=== PATIENT | male | born 1985 | race Caucasian/White ===

== ENCOUNTER 2020-07-29 11:10 | Emergency (ER) | payer OTHER, SELFPAY ==
--- NOTE | ~2020-07-29 | XR_ITS ---
EXAMINATION: XR tibia fibula RT 2V DATE: 07/29/2020 12:25 INDICATION: Right lower leg pain. Fall. TECHNIQUE: 2 views of right tibia and fibula on 4 radiographs were obtained. COMPARISON: None. FINDINGS: Bone alignment is normal. No fracture. Joint spaces are well maintained. IMPRESSION: 1. No fracture. Reviewed, dictated and finalized at location B. IMPRESSION: 1. No fracture.
--- NOTE | ~2020-07-29 | US_ITS ---
EXAMINATION: US venous doppler LE RT EXAM DATE: 07/29/2020 12:52 INDICATION: Right calf pain. TECHNIQUE: Multiple grayscale, color flow and Doppler images of the right lower extremity deep venous system were obtained and reviewed. There is no prior study for comparison. FINDINGS: The right common femoral, femoral and profunda veins demonstrate normal color flow, respira tory variation, augmentation and compressibility. Compressibility, color flow confirmed within the r ight popliteal, posterior tibial, peroneal, veins. There is right greater saphenous below knee superficial venous thrombophlebitis, reportedly at an are a of clinical concern. IMPRESSION: 1. Right greater saphenous superficial venous thrombophlebitis below the knee. 2. No right lower extremity deep venous thrombosis. Reviewed, dictated and finalized at location A.
[2020-07-29 11:52] VITALS: BP 136/98; PULSE 70; RESP 18; TEMP 36.6; O2SAT 100
--- NOTE | 2020-07-29 12:04 | ED.LOWEXIN ---
HPI - Extremity Injury (Lower) General Chief Complaint: Extremity Injury, Lower Stated Complaint: rt leg injury Time Seen by Provider: 07/29/20 11:56 Source: RN notes reviewed History of Present Illness HPI Narrative: Patient presents to emergency room from home for right calf pain. Patient states presently 2 weeks ago he fell off the ladder landing on his feet. States he scraped his right medial calf on the side a ladder when he fell but denies any open wounds. States he did not have any symptoms initially but approximately later began to develop pain over the right lateral calf. States since that time he had an area of firmness is been tender to palpation. States it does not hurt to move the ankle or the knee and denies any pain with activation of the calf denies any fevers or chills chest pain shortness of breath or any other symptoms Related Data Allergies Allergy/AdvReac Type Severity Reaction Status Date / Time Sulfa (Sulfonamide Allergy Mild Rash Verified 01/23/18 02:52 Antibiotics) Review of Systems Review of Systems: Narrative: Gen.: Denies fevers or chills Respiratory: Denies shortness of breath or cough CV: Denies chest pain or palpitations Musculoskeletal: See HPI Neuro: Denies numbness, tingling, weakness or focal weakness Skin: Denies rash Except as documented, all other systems reviewed and negative PMFSH Past Medical History Medical History (Updated 07/29/20 @ 14:11 by Alexsander Velázquez DO) Patient denies significant medical history Social History Social History (Updated 07/29/20 @ 12:05 by Alexsander Velázquez DO) Smoking status: Current every day smoker Gender identity (if verbalized by the patient): Male Exam Narrative: Exam Narrative: APPEARANCE: No acute distress, nontoxic, resting in bed Eyes: EOMI HEENT: Normocephalic, atraumatic, RESPIRATORY: No respiratory distress MUSCULOSKELETAl: Tender palpation over the right medial calf with area of firmness and erythema no fluctuance no open wounds no drainage, no tenderness of the remainder of the calf, no tenderness of the knee or ankle full range of motion of both without pain, dorsalis pedis pulse 2+, neurovascular intact NEURO: Awake and alert. Following commands, speech normal, no focal deficits SKIN:: Warm, dry. Normal Color no rash or lesions Course Course Emergency Course: Discussed Dr. Motwani presentation work-up. At this time recommends patient start on ibuprofen with discharge and follow-up as an outpatient Discussed with patient results of workup and diagnosis. Discussed need for follow-up with primary care, proper use of medication, and reasons to return to the emergency department. Patient understands and agrees to current treatment plan Vital Signs Vital signs: Vital Signs Temperature 98 F 07/29/20 11:52 Pulse Rate 70 07/29/20 11:52 Respiratory Rate 18 07/29/20 11:52 Blood Pressure 136/98 H 07/29/20 11:52 Pulse Oximetry 100 07/29/20 11:52 Temperature 98 F 07/29/20 11:52 Pulse Rate 70 07/29/20 11:52 Respiratory Rate 18 07/29/20 11:52 Blood Pressure 136/98 H 07/29/20 11:52 Pulse Oximetry 100 07/29/20 11:52 MDM - Extremity Injury (Lower) Lab Data Result diagrams: 07/29/20 12:10 07/29/20 12:10 Labs: Lab Results 07/29/20 07/29/20 07/29/20 Range/Units 12:10 12:10 12:10 WBC 7.7 (4.5-10.0) K/mm3 RBC 4.88 (4.6-6.20) M/mm3 Hgb 15.2 (14.0-18.0) g/dL Hct 43.5 (42.0-52.0) % MCV 89.1 (80-100) fl MCH 31.1 (26-34) pg MCHC 34.9 (32-36) g/dl RDW 12.0 (11.5-14.5) % Plt Count 257 (150-375) k/mm3 MPV 10.2 (7.4-10.4) fl Immature Gran % (Auto) 0.3 (0-0.5) % Neut % (Auto) 57.8 (45.5-73.1) % Lymph % (Auto) 27.2 (18.3-44.2) % Harding % (Auto) 11.0 H (2.6-8.5) % Eos % (Auto) 3.2 (0-4.4) % Baso % (Auto) 0.5 (0.2-1.2) % Lymph # (Auto) 2.10 (0.9-3.2) K/mm3 Harding # (Auto) 0.9 H (0.1-0.6)
[2020-07-29 12:25] LABS: Basophils Percent Auto 0.5 % (0.2-1.2); Eosinophils Absolute Auto 0.3 K/mm3 (0-0.3); Eosinophils Percent Auto 3.2 % (0-4.4); Hematocrit 43.5 % (42.0-52.0); Hemoglobin 15.2 g/dL (14.0-18.0); Immature Granulocyte Absolute 0.02 K/mm3 (0.00-0.031); Immature Granulocyte Percent A 0.3 % (0-0.5); Lymphocytes Percent Auto 27.2 % (18.3-44.2); Mean Corpuscular HGB Conc 34.9 g/dl (32-36); Mean Corpuscular Hemoglobin 31.1 pg (26-34); Mean Corpuscular Volume 89.1 fl (80-100); Mean Platelet Volume 10.2 fl (7.4-10.4); Monocytes Absolute Auto 0.9 K/mm3 (0.1-0.6); Neutrophils Absolute Auto 4.5 K/mm3 (1.3-6.7); Neutrophils Percent Auto 57.8 % (45.5-73.1); Platelet Count Result 257 k/mm3 (150-375); Red Blood Count 4.88 M/mm3 (4.6-6.20); White Blood Count 7.7 K/mm3 (4.5-10.0)
[2020-07-29 12:32] LABS: INR 0.9; Prothrombin Time 12.3 Seconds (11.1-14.7)
[2020-07-29 12:33] LABS: Alanine Aminotransferase 26 U/L (4-50); Albumin Level 4.1 g/dL (3.5-5.1); Alkaline Phosphatase 46 U/L (38-126); Anion Gap 7 mmol/L (8-16); Aspartate Amino Transferase 24 U/L (17-59); Bilirubin,Total 0.5 mg/dL (0.2-1.3); Blood Urea Nitrogen 12 mg/dL (9-20); Calcium 8.8 mg/dL (8.4-10.2); Carbon Dioxide 23 mmol/L (22-30); Chloride 106 mmol/L (98-107); Estimated CRCL calculation 95 ml/min; Estimated Glomerular Filt Rate > 60; Glucose 85 mg/dL (75-110); Partial Thromboplastin Time 28.2 SECONDS (22.3-36.8); Sodium 136 mmol/L (137-145)
[2020-07-29] MEDS: IBUPROFEN 600 MG TABLET PO (14:21)
[2020-07-29 14:35] VITALS: BP 137/103; PULSE 57; RESP 16; O2SAT 100
== END 2020-07-29 14:25 | disposition home or self-care (01) ==
PROVIDERS: Emergency Provider Emergency Medicine; PCP Emergency Medicine
DX: I80.01 Phlebitis and thrombophlebitis of superficial vessels of right lower extremity (principal); F17.200 Nicotine dependence, unspecified, uncomplicated
CPT/HCPCS: 36415; 73590; 80053; 85025; 85610; 85730; 93971; 99284; A9270

== ENCOUNTER 2021-03-02 12:53 | Emergency (ER) | payer OTHER, SELFPAY ==
--- NOTE | ~2021-03-02 | XR_ITS ---
EXAMINATION: XR ankle RT min 3V EXAM DATE: 03/02/2021 13:47 INDICATION: Fell from 8 feet high. Initial encounter, right ankle pain. TECHNIQUE: Right ankle frontal, lateral and oblique projections obtained and reviewed. Correlation is made to tibia-fibula exam from 07/29/2020. FINDINGS: The right ankle mortise appears intact. There are no acute fractures or dislocations iden tified. There is no subcutaneous gas. There is soft tissue swelling over the ankle mostly anterolate rally. There are no radiopaque foreign bodies. IMPRESSION: 1. Right ankle exam without acute osseous findings. 2. Soft tissue swelling. Reviewed, dictated and finalized at location A.
[2021-03-02 13:01] VITALS: BP 137/83; PULSE 76; RESP 18; TEMP 36.6; O2SAT 99
[2021-03-02] MEDS: SODIUM CHLORIDE 0.9% IV 1,000 ML 999 ML IV CONT (13:28)
[2021-03-02] MEDS: MORPHINE SULFATE (*CRX) 4 MG/ML INJ IV PUSH (13:28)
--- NOTE | 2021-03-02 14:48 | ED.GENADULT ---
HPI - General Adult General Chief complaint: Extremity Injury, Lower Stated complaint: ankle injury Time Seen by Provider: 03/02/21 13:02 Source: patient Mode of arrival: EMS Limitations: no limitations History of Present Illness HPI narrative: Patient is a 35-year-old male who presents per EMS after his ladder collapsed and he fell injuring the right ankle patient with swelling of the right ankle joint with bruising noted moderate aching pain worse with activity and movement. Patient denies other injuries or complaints was given IV narcotic in route. Related Data Home Medications Medication Instructions Recorded Confirmed No Home Medications 03/02/21 03/02/21 Allergies Allergy/AdvReac Type Severity Reaction Status Date / Time Sulfa (Sulfonamide Allergy Mild Rash Verified 03/02/21 13:09 Antibiotics) Review of Systems Review of Systems: All systems reviewed & are unremarkable except as noted in HPI and below PMFSH Past Medical History Medical History Patient denies significant medical history Social History Social History Smoking status: Current every day smoker Gender identity (if verbalized by the patient): Male Exam Narrative: Exam Narrative: GENERAL: Well-appearing, well-nourished, and in no acute distress. HEAD: Normocephalic, atraumatic. EYES: PERRLA and EOMI. ENT: Nares clear, no rhinorrhea or epistaxis. Mucous membranes moist. NECK: Supple. No adenopathy or masses. CHEST: Clear to auscultation. No respiratory distress. No wheezes rales or rhonchi HEART: Regular rate and rhythm. No murmur heard. Normal peripheral pulses. EXTREMITIES: Swelling and tenderness of the right ankle joint remainder of extremity nontender. No cervical thoracic or lumbar tenderness SKIN: Warm, dry, no rash. NEURO: No focal deficits. Alert and oriented x3. Neurovascularly intact PSYCH: Normal mood and affect. Course Course Emergency Course: Patient in the room no distress aware of case findings treatment plan and diagnosis agreeing to follow-up with primary care as instructed also be given orthopedic follow-up in case he continues to have pain patient will be placed in Jose wrap and crutches with limited weightbearing with instructions for follow-up and reasons to return Vital Signs Vital signs: Vital Signs Temperature 97.9 F 03/02/21 13:01 Pulse Rate 76 03/02/21 13:01 Respiratory Rate 18 03/02/21 13:01 Blood Pressure 137/83 03/02/21 13:01 Pulse Oximetry 99 03/02/21 13:01 Temperature 97.9 F 03/02/21 13:01 Pulse Rate 76 03/02/21 13:01 Respiratory Rate 18 03/02/21 13:01 Blood Pressure 137/83 03/02/21 13:01 Pulse Oximetry 99 03/02/21 13:01 Medical Decision Making MDM Narrative Medical decision making narrative: Patients injury or pain is consistent with musculoskeletal etiology. No signs of neurological or vascular compromise on exam. Compartments and tisues are soft without signs of compartment syndrome. Pain is felt appropriate for further evaluation on an outpatient basis. Vital Signs Vital Signs: Vital Signs Temperature 97.9 F 03/02/21 13:01 Pulse Rate 76 03/02/21 13:01 Respiratory Rate 18 03/02/21 13:01 Blood Pressure 137/83 03/02/21 13:01 Pulse Oximetry 99 03/02/21 13:01 Temperature 97.9 F 03/02/21 13:01 Pulse Rate 76 03/02/21 13:01 Respiratory Rate 18 03/02/21 13:01 Blood Pressure 137/83 03/02/21 13:01 Pulse Oximetry 99 03/02/21 13:01 Imaging Data Radiologist's impression: ITS Impressions Ankle X-Ray 03/02/21 13:49 IMPRESSION: 1. Right ankle exam without acute osseous findings. 2. Soft tissue swelling. Discharge Plan Discharge Clinical Impression: Right ankle sprain Patient Disposition: Home, Self-Care Condition: Stable Instructions: Antibiotic Form, Ankle Sprai
[2021-03-02 15:58] VITALS: BP 127/77; PULSE 73; RESP 18; O2SAT 99
== END 2021-03-02 16:06 | disposition home or self-care (01) ==
PROVIDERS: Emergency Provider Emergency Medicine; PCP Family Medicine
DX: S93.401A Sprain of unspecified ligament of right ankle, initial encounter (principal); F17.200 Nicotine dependence, unspecified, uncomplicated; W11.XXXA Fall on and from ladder, initial encounter
CPT/HCPCS: 73610; 96361; 96374; 99284; J2270; J7030

== ENCOUNTER 2022-01-16 14:43 | Emergency (ER) | payer OTHER, SELFPAY ==
[2022-01-16 14:55] VITALS: BP 160/106; PULSE 100; RESP 18; TEMP 36.6; O2SAT 100
--- NOTE | 2022-01-16 16:52 | PC.NURSE ---
attempted to call pt x 2, parking lot searched. will dispo as left without being seen
--- NOTE | 2022-01-16 16:53 | PC.NURSE ---
no answer at triage
== END 2022-01-16 17:06 | disposition left against medical advice (07) ==
DX: F41.9 Anxiety disorder, unspecified (principal)
CPT/HCPCS: 99199